=== PATIENT | female | born 1955 ===

== ENCOUNTER 2024-06-07 20:00 | Emergency (ER) | payer MEDICARE ==
[2024-06-07] MEDS: Ibuprofen 600 MG Tab PO ONE (21:59)
== END 2024-06-07 22:30 | disposition home or self-care (01) ==
LOC: JD.ED 20:00
DX: S82.115A Nondisplaced fracture of left tibial spine, initial encounter for closed fracture (principal); I10 Essential (primary) hypertension; F17.210 Nicotine dependence, cigarettes, uncomplicated; Z79.899 Other long term (current) drug therapy; W01.0XXA Fall on same level from slipping, tripping and stumbling without subsequent striking against object, initial encounter; Y93.01 Activity, walking, marching and hiking
CPT/HCPCS: 73562; 99283; A9270